=== PATIENT | male | born 1985 | race Caucasian/White ===

== ENCOUNTER → 2023-05-22 | Outpatient (CLI) | payer OTHER ==
--- NOTE | 2023-05-22 12:11 | XR ---
EXAMINATION TYPE: XR chest 2V DATE OF EXAM: 05/22/2023 12:06 PM COMPARISON: None TECHNIQUE: XR chest 2V Frontal and lateral views of the chest. CLINICAL INDICATION:Male, 38 years old with history of R05.9 COUGH; FINDINGS: Lungs/Pleura: There is no evidence of pleural effusion, focal consolidation, or pneumothorax. Pulmonary vascularity: Unremarkable. Heart/mediastinum: Cardiomediastinal silhouette is unremarkable. Musculoskeletal: No acute osseous pathology. IMPRESSION: No acute cardiopulmonary disease/process.
== END | disposition home or self-care (01) ==
LOC: RADXRMAIN 11:56
PROVIDERS: ATTEND Pediatrics
DX: R05.9 Cough, unspecified (principal)
CPT/HCPCS: 71046

== ENCOUNTER → 2023-10-09 | Day surgery (SDC) | payer OTHER ==
[~2023-10-09] MED LIST: LIDOCAINE 1% INJ 10MG/ML (20 ML MDV) ONE; PROPOFOL 10 MG/ML 20 ML VIAL IV ONE
[2023-10-09] MEDS: LACTATED RINGERS 1,000 ML IV SCH (10:09)
[2023-10-09 10:30] VITALS: TEMP 98.3
--- NOTE | 2023-10-09 10:42 | P.PCN ---
Date of Procedure: 10/09/23 Procedure(s) Performed: BRIEF HISTORY: Patient is a 38-year-old pleasant white male with history of a distal scheduled for an elective colonoscopy as a part of change in bowel habits and intermittent rectal bleeding for the last several months duration. His been having chronic diarrhea with 3-4 loose watery bowel movements daily. PROCEDURE PERFORMED: Colonoscopy with biopsy. PREOPERATIVE DIAGNOSIS: Chronic diarrhea and intermittent rectal bleeding. IV sedation per Anesthesia. PROCEDURE: After informed consent was obtained, the patient, was brought into the endoscopy unit. IV sedation was administered by Anesthesia under continuous monitoring. Digital rectal examination was normal. Initially the Olympus CF-160 flexible video colonoscope was then inserted in the rectum, gradually advanced into the cecum without any difficulty. Careful examination was performed as the scope was gradually being withdrawn. The appendiceal orifice were visualized and appeared normal. Prep was excellent. Ileocecal valve was very inflamed and biopsies were done from this area. Terminal ileum was examined and narrowing and I could not pass the scope into the terminal ileum. However the distal part of the terminal ileum was visualized and revealed ulcerations and erosions identified and biopsies biopsies were done from this area. Mucosa of the cecum, ascending colon, transverse colon, appeared normal there was a 3 mm recent colon polyp that was biopsied. Rest of the descending colon, sigmoid colon, and rectum appeared normal. Retroflexion was performed in the rectum and no lesions were seen. The patient tolerated the procedure well. IMPRESSION: Narrowing of the terminal ileum with erosions or ulcerations suspicious for Crohn's disease status post multiple biopsies Inflamed ileocecal valve status post biopsies 3 mm descending colon polyp status post cold biopsy Rest of the colon appeared normal RECOMMENDATIONS: Findings of this examination were discussed with the patient as well as his family.. He was advised to follow with the biopsy results. He'll be seen in office in 2 weeks.
[2023-10-09 11:54] VITALS: BP 105/69; PULSE 85; RESP 14
== END ==
LOC: ORWHC2ENDO 09:19
PROVIDERS: ATTEND Internal Medicine Gastroenterology
DX: K63.3 Ulcer of intestine (principal); K52.9 Noninfective gastroenteritis and colitis, unspecified; K63.5 Polyp of colon; F41.9 Anxiety disorder, unspecified; F84.0 Autistic disorder; E78.5 Hyperlipidemia, unspecified; Z88.8 Allergy status to other drugs, medicaments and biological substances; Z79.899 Other long term (current) drug therapy; Z90.49 Acquired absence of other specified parts of digestive tract; Z88.1 Allergy status to other antibiotic agents
CPT/HCPCS: 88305; 45380; J2001; J2704

== ENCOUNTER → 2024-07-13 | Outpatient (CLI) | payer OTHER ==
--- NOTE | 2024-07-13 18:24 | XR ---
EXAMINATION TYPE: XR chest 2V DATE OF EXAM: 07/13/2024 5:58 PM COMPARISON: Chest radiographs from 05/22/2023 CLINICAL INDICATION: Male, 39 years old with history of R05.3 CHRONIC COUGH; H TECHNIQUE: XR chest 2V Frontal and lateral views of the chest. FINDINGS: Lungs/Pleura: There is no evidence of pleural effusion, focal consolidation, or pneumothorax. Pulmonary vascularity: Unremarkable. Heart/mediastinum: Cardiomediastinal silhouette is unremarkable. Musculoskeletal: No acute osseous pathology. IMPRESSION: No acute cardiopulmonary disease/process. [facility], , 07/13/2024 6:22 PM
--- NOTE | 2024-07-13 18:25 | XR ---
EXAMINATION TYPE: XR sinus DATE OF EXAM: 07/13/2024 5:58 PM COMPARISON: None CLINICAL INDICATION: Male, 39 years old with history of R05.3 CHRONIC COUGH; [facility] TECHNIQUE: 4 views the sinuses frontal, lateral and Dash. FINDINGS: The adjacent paranasal sinuses are well aerated an without evidence of intra-cavitary fluid accumulat ion. The nasal bridge appears intact. The mandible appears intact. Mastoid air cells are well aerated . The frontal sinus and maxillary sinuses are well aerated. IMPRESSION: No evidence of significant paranasal sinus disease. Consider CT sinus for complete evaluation of the sinuses. [facility], , 07/13/2024 6:23 PM
== END | disposition home or self-care (01) ==
LOC: RADXRMAIN 17:28
PROVIDERS: ATTEND Pediatrics
DX: R05.3 Chronic cough (principal)
CPT/HCPCS: 70220; 71046